=== PATIENT | male | born 1980 | race Two or more races ===

== ENCOUNTER 2021-05-18 08:21 | Observation (INO) | payer SELFPAY ==
--- NOTE | 2021-05-18 09:11 | ER ---
Nurse's Notes [facility] Name: Sawyer Ch III Age: 40 yrs Sex: Male : 1980 Arrival Date: 05/18/2021 Time: 08:23 Bed 17 Private MD: Diagnosis: Fever, unspecified;Cutaneous abscess of limb, unspecified-RIGHT LEG;Cellulitis and acute lymphangitis of other parts of limb;Hypomagnesemia Presentation: 05/18 08:25 Chief complaint: Patient states: "I hurt my right knee playing football years ago and a aa5 couple of days ago it started swelling up and it's like a grapefruit now". Pt also states "I ran a fever on Thursday and I took a covid test but it was negative". Pt denies fever/chills for about 3 days now. Coronavirus screen: At this time, the client does not indicate any symptoms associated with coronavirus-19. Ebola Screen: Patient negative for fever greater than or equal to 101.5 degrees Fahrenheit, and additional compatible Ebola Virus Disease symptoms. 08:25 Method Of Arrival: Ambulatory aa5 08:25 Initial Sepsis Screen: Does the patient meet any 2 criteria? No. Patient's initial aa5 sepsis screen is negative. Does the patient have a suspected source of infection? No. Patient's initial sepsis screen is negative. Risk Assessment: Do you want to hurt yourself or someone else? Patient reports no desire to harm self or others. Onset of symptoms was May 2021. 08:25 Acuity: ARI 3 aa5 Triage Assessment: 08:30 General: Appears distressed, uncomfortable, Behavior is calm, cooperative, appropriate bp for age. Pain: Complains of pain in medial aspect of right knee. EENT: No deficits noted. Neuro: No deficits noted. Cardiovascular: No deficits noted. Respiratory: No deficits noted. GI: No signs and/or symptoms were reported involving the gastrointestinal system. : No signs and/or symptoms were reported regarding the genitourinary system. Derm: No deficits noted. Musculoskeletal: Swelling present in medial aspect of right knee. Historical: - Allergies: 08:28 shrimp; aa5 - PMHx: 08:28 None; aa5 - PSHx: 08:28 None; aa5 - Immunization history:: Client reports receiving the 2nd dose of the Covid vaccine. - Social history:: Smoking status: Patient denies any tobacco usage or history of. - Family history:: not pertinent. Screenin:00 Abuse screen: Denies threats or abuse. Denies injuries from another. Nutritional bp screening: No deficits noted. Tuberculosis screening: No symptoms or risk factors identified. Fall Risk None identified. Assessment: 08:30 General: SEE TRIAGE NOTE. bp 10:30 Reassessment: No changes from previously documented assessment. Patient and/or family bp updated on plan of care and expected duration. Pain level reassessed. Patient is alert, oriented x 3, equal unlabored respirations, skin warm/dry/pink. 12:30 Reassessment: ADMIT INITIATED. bp 14:30 Reassessment: No changes from previously documented assessment. Patient and/or family bp updated on plan of care and expected duration. Pain level reassessed. Patient is alert, oriented x 3, equal unlabored respirations, skin warm/dry/pink. 16:30 Reassessment: No changes from previously documented assessment. Patient and/or family bp updated on plan of care and expected duration. Pain level reassessed. Patient is alert, oriented x 3, equal unlabored respirations, skin warm/dry/pink. 17:30 Reassessment: BED ASSIGNED. bp Vital Signs: 08:25 BP 166 / 89; Pulse 86; Resp 16 S; Temp 98.2(O); Pulse Ox 100% on R/A; Weight 95.25 kg aa5 (R); Height 5 ft. 9 in. (175.26 cm) (R); 11:00 BP 135 / 62; Pulse 84; Resp 24; Pulse Ox 98% ; bp 13:00 BP 132 / 86; Pulse 87; Resp 20; Pulse Ox 100% ; bp 15:00 BP 159 / 94; Pulse 79; Resp 25; Pulse Ox 98% ; bp 17:00 BP 161 / 78; Pulse 78; Resp 20; Pulse Ox 99% ; bp 08:25 Body Mass Index 31.01 (95.25 kg, 175.26 cm) aa5 ED Course: 08:23 Patient arrived in ED. as 08:25 Arm band placed on. aa 08:29 Triage completed. aa 08:30 Edwin Brownlee MD is Attending Physician. [facility] 08:58 Pieter Duran, RN is Primary Nurse. bp 09:09 XRAY Chest (1 view) In Process Unspecified. EDMS 09:09 Knee Right 2 View XRAY In Process Unspecified. EDMS 09:09 Joshua Suarez DO is Hospitalizing Provider. [facility] 09:20 Basic Metabolic Panel Sent. 5 09:20 CBC with Diff Sent. 5 09:20 LFT's Sent. 5 09:20 Magnesium Sent. 5 09:21 NT PRO-BNP Sent. 5 09:21 PT-INR Sent. 5 09:21 Troponin (emerg Dept Use Only) Sent. 5 09:21 Initial lab(s) drawn, by pr, sent to lab. EKG done, by ED staff, reviewed by Edwin Brownlee MD COVID swab sent to lab. Inserted saline lock: 20 gauge in right antecubital area, using aseptic technique. Blood collected. 09:22 Patient has correct armband on for positive identification. Bed in low position. Call [facility] light in reach. Side rails up X 1. Adult w/ patient. Warm blanket given. machine clothing replacer on. Pulse ox on. NIBP on. 09:23 Basic Metabolic Panel Sent. 5 09:37 US Extrmty Nonvasular Limited: ABSCESS In Process Unspecified. EDMS 17:30 No provider procedures requiring assistance completed. Patient admitted, IV remains in bp place. Administered Medications: 09:15 Drug: Clindamycin 900 mg Route: IVPB; Infused Over: 30 mins; Site: right antecubital; bp 10:07 Follow up: IV Status: Completed infusion; IV Intake: 50ml bp 09:15 Drug: morphine 4 mg Route: IVP; Site: right antecubital; bp 10:07 Follow up: Response: Pain is decreased bp 09:15 Drug: Zofran (Ondansetron) 4 mg Route: IVP; Site: right antecubital; bp 10:07 Follow up: Response: No adverse reaction bp 09:15 Drug: NS 0.9% 1000 ml Route: IV; Rate: 1 bolus; Site: right antecubital; bp 10:35 Follow up: IV Status: Completed infusion; IV Intake: 1000ml bp 09:15 Drug: NS 0.9% 1000 ml Route: IV; Rate: 125 ml/hr; Site: right antecubital; bp 18:37 Follow up: IV Status: Infusion continued upon admission bp 10:07 Drug: Zosyn (piperacillin-tazobactam) 3.375 grams Route: IVPB; Infused Over: 60 mins; bp Site: right forearm; 10:34 Follow up: IV Status: Completed infusion; IV Intake: 100ml bp 10:20 Drug: Magnesium Sulfate 1 grams Route: IVPB; Infused Over: 1 hrs; Site: right forearm; bp 18:02 Follow up: IV Status: Completed infusion; IV Intake: 100ml bp Intake: 10:07 IV: 50ml; Total: 50ml. bp 10:34 IV: 100ml; Total: 150ml. bp 10:35 IV: 1000ml; Total: 1150ml. bp 18:02 IV: 100ml; Total: 1250ml. bp Outcome: 09:11 Decision to Hospitalize by Provider. attila 18:36 Admitted to Med/surg accompanied by tech, via wheelchair, room 202, with chart, Report bp called to RERE DE LEÓN 18:36 Condition: stable 18:36 Instructed on the need for admit. 18:53 Patient left the ED. bp Signatures: Dispatcher [employer] EDMS Edwin Brownlee MD MD cha Martinez, Amelia as Calderon, Audri, RN RN Lisa Mishra Pieter Fatima, RN RN bp Corrections: (The following items were deleted from the chart) 08:29 08:28 Allergies: No Known Allergies; Jaguar aa5 09:48 09:20 CORONAVIRUS+ drawn and sent. [address]
--- NOTE | 2021-05-18 09:11 | EDPHYS ---
Physician Documentation [facility] Name: Sawyer Ch III Age: 40 yrs Sex: Male : 1980 Arrival Date: 05/18/2021 Time: 08:23 Bed 17 Private MD: SHARAD Physician Edwin Brownlee HPI: 05/18 09:01 This 40 yrs old Male presents to ER via Ambulatory with complaints of Knee attila Pain - swelling. 09:01 The patient presents with decreased range of motion, pain, swelling, tenderness. The attila complaints affect the medial aspect of right knee. Context: The problem was sustained at an unknown site, resulted from an unknown cause, the patient can fully bear weight, the patient is able to ambulate. Onset: The symptoms/episode began/occurred 3 day(s) ago. Modifying factors: The symptoms are alleviated by elevating leg, remaining still, the symptoms are aggravated by movement, bending knee. Associated signs and symptoms: Pertinent positives: fever, swelling, warmth. Treatment prior to arrival includes: no previous treatment. Severity of symptoms: At their worst the symptoms were moderate, this morning. The patient has not experienced similar symptoms in the past. Historical: - Allergies: 08:28 shrimp; aa5 - PMHx: 08:28 None; aa5 - PSHx: 08:28 None; aa5 - Immunization history:: Client reports receiving the 2nd dose of the Covid vaccine. - Social history:: Smoking status: Patient denies any tobacco usage or history of. - Family history:: not pertinent. ROS: 09:01 Constitutional: Negative for fever, chills, and weight loss, Eyes: Negative for injury, attila pain, redness, and discharge, ENT: Negative for injury, pain, and discharge, Neck: Negative for injury, pain, and swelling, Cardiovascular: Negative for chest pain, palpitations, and edema, Respiratory: Negative for shortness of breath, cough, wheezing, and pleuritic chest pain, Abdomen/GI: Negative for abdominal pain, nausea, vomiting, diarrhea, and constipation, Back: Negative for injury and pain, : Negative for injury, bleeding, discharge, and swelling, Neuro: Negative for headache, weakness, numbness, tingling, and seizure, Psych: Negative for depression, anxiety, suicide ideation, homicidal ideation, and hallucinations, Allergy/Immunology: Negative for hives, rash, and allergies, Endocrine: Negative for neck swelling, polydipsia, polyuria, polyphagia, and marked weight changes, Hematologic/Lymphatic: Negative for swollen nodes, abnormal bleeding, and unusual bruising. 09:01 MS/extremity: Positive for decreased range of motion, pain, swelling, tenderness, warmth, of the medial aspect of right knee. Exam: 09:01 Constitutional: This is a well developed, well nourished patient who is awake, alert, attila and in no acute distress. Head/Face: Normocephalic, atraumatic. Eyes: Pupils equal round and reactive to light, extra-ocular motions intact. Lids and lashes normal. Conjunctiva and sclera are non-icteric and not injected. Cornea within normal limits. Periorbital areas with no swelling, redness, or edema. ENT: Nares patent. No nasal discharge, no septal abnormalities noted. Tympanic membranes are normal and external auditory canals are clear. Oropharynx with no redness, swelling, or masses, exudates, or evidence of obstruction, uvula midline. Mucous membranes moist. Neck: Trachea midline, no thyromegaly or masses palpated, and no cervical lymphadenopathy. Supple, full range of motion without nuchal rigidity, or vertebral point tenderness. No Meningismus. Chest/axilla: Normal chest wall appearance and motion. Nontender with no deformity. No lesions are appreciated. Cardiovascular: Regular rate and rhythm with a normal S1 and S2. No gallops, murmurs, or rubs. Normal PMI, no JVD. No pulse deficits. Respiratory: Lungs have equal breath sounds bilaterally, clear to auscultation and percussion. No rales, rhonchi or wheezes noted. No increased work of breathing, no retractions or nasal flaring. Abdomen/GI: Soft, non-tender, with normal bowel sounds. No distension or tympany. No guarding or rebound. No evidence of tenderness throughout. Back: No spinal tenderness. No costovertebral tenderness. Full range of motion. Skin: Warm, dry with normal turgor. Normal color with no rashes, no lesions, and no evidence of cellulitis. Neuro: Awake and alert, GCS 15, oriented to person, place, time, and situation. Cranial nerves II-XII grossly intact. Motor strength 5/5 in all extremities. Sensory grossly intact. Cerebellar exam normal. Normal gait. Psych: Awake, alert, with orientation to person, place and time. Behavior, mood, and affect are within normal limits. 09:01 Musculoskeletal/extremity: ROM: full active range of motion, full passive range of motion, limited active range of motion due to pain, limited passive range of motion due to pain, Circulation is intact in all extremities. Sensation intact. Compartment Syndrome exam of affected extremity: is normal. DVT Exam: negative Homans' sign noted on exam, no appreciated bluish discoloration, pain, swelling, tenderness, erythema, increased warmth. 09:01 Skin: abscess, that is moderate sized, of the medial aspect of right knee, with fluctuance, with surrounding cellulitis, that is moderate, cellulitis, that is mild, that is moderate. 10:27 ECG was reviewed by the Attending Physician. [facility] Vital Signs: 08:25 BP 166 / 89; Pulse 86; Resp 16 S; Temp 98.2(O); Pulse Ox 100% on R/A; Weight 95.25 kg aa5 (R); Height 5 ft. 9 in. (175.26 cm) (R); 11:00 BP 135 / 62; Pulse 84; Resp 24; Pulse Ox 98% ; bp 13:00 BP 132 / 86; Pulse 87; Resp 20; Pulse Ox 100% ; bp 15:00 BP 159 / 94; Pulse 79; Resp 25; Pulse Ox 98% ; bp 17:00 BP 161 / 78; Pulse 78; Resp 20; Pulse Ox 99% ; bp 08:25 Body Mass Index 31.01 (95.25 kg, 175.26 cm) aa5 MDM: 08:30 Patient medically screened. [facility] 09:06 Differential diagnosis: contusion, abrasion. Data reviewed: vital signs, nurses notes, [facility] lab test result(s), EKG, radiologic studies, doppler, plain films. Data interpreted: quality assurance monitor: rate is 86 beats/min, rhythm is regular, Pulse oximetry: on room air is 100 %. Test interpretation: by ED physician or midlevel provider: ECG, plain radiologic studies. Counseling: I had a detailed discussion with the patient and/or guardian regarding: the historical points, exam findings, and any diagnostic results supporting the discharge/admit diagnosis, lab results, radiology results, the need for further work-up and treatment in the hospital. 05/18 08:54 Order name: CBC with Diff; Complete Time: 10:08 [facility] 05/18 08:54 Order name: LFT's; Complete Time: 10:08 [facility] 05/18 08:54 Order name: Magnesium; Complete Time: 10:08 [facility] 05/18 08:54 Order name: NT PRO-BNP; Complete Time: 10:08 [facility] 05/18 08:54 Order name: PT-INR; Complete Time: 10:09 [facility] 05/18 08:54 Order name: Troponin (emerg Dept Use Only); Complete Time: 10:09 [facility] 05/18 08:54 Order name: XRAY Chest (1 view); Complete Time: 10:09 [facility] 05/18 08:54 Order name: Knee Right 2 View XRAY; Complete Time: 10:09 [facility] 05/18 08:54 Order name: US Extrmty Nonvasular Limited: ABSCESS; Complete Time: 12:27 [facility] 05/18 08:54 Order name: Basic Metabolic Panel; Complete Time: 10:09 [facility] 05/18 09:48 Order name: SARS-COV-2 RT PCR; Complete Time: 12:27 [facility] 05/18 08:54 Order name: EKG; Complete Time: 08:55 [facility] 05/18 08:54 Order name: Cardiac monitoring; Complete Time: 09:21 [facility] 05/18 08:54 Order name: EKG - Nurse/Tech; Complete Time: 09:39 [facility] 05/18 08:54 Order name: IV Saline Lock; Complete Time: 09:21 [facility] 05/18 08:54 Order name: Labs collected and sent; Complete Time: 09:21 [facility] 05/18 08:54 Order name: O2 Per Protocol; Complete Time: 09:01 [facility] 05/18 08:54 Order name: O2 Sat Monitoring; Complete Time: 09:01 [facility] EC:27 Rate is 84 beats/min. Rhythm is regular. QRS [place] is Normal. [place] interval is normal. QRS attila interval is normal. QT interval is normal. No Q waves. T waves are Normal. No ST changes noted. Clinical impression: NSR w/ Non-specific ST/T Changes and No evidence of ischemia. Interpreted by me. Reviewed by me. Administered Medications: 09:15 Drug: Clindamycin 900 mg Route: IVPB; Infused Over: 30 mins; Site: right antecubital; bp 10:07 Follow up: IV Status: Completed infusion; IV Intake: 50ml bp 09:15 Drug: morphine 4 mg Route: IVP; Site: right antecubital; bp 10:07 Follow up: Response: Pain is decreased bp 09:15 Drug: Zofran (Ondansetron) 4 mg Route: IVP; Site: right antecubital; bp 10:07 Follow up: Response: No adverse reaction bp 09:15 Drug: NS 0.9% 1000 ml Route: IV; Rate: 1 bolus; Site: right antecubital; bp 10:35 Follow up: IV Status: Completed infusion; IV Intake: 1000ml bp 09:15 Drug: NS 0.9% 1000 ml Route: IV; Rate: 125 ml/hr; Site: right antecubital; bp 18:37 Follow up: IV Status: Infusion continued upon admission bp 10:07 Drug: Zosyn (piperacillin-tazobactam) 3.375 grams Route: IVPB; Infused Over: 60 mins; bp Site: right forearm; 10:34 Follow up: IV Status: Completed infusion; IV Intake: 100ml bp 10:20 Drug: Magnesium Sulfate 1 grams Route: IVPB; Infused Over: 1 hrs; Site: right forearm; bp 18:02 Follow up: IV Status: Completed infusion; IV Intake: 100ml bp Disposition Summary: 05/18/21 09:11 Hospitalization Ordered Hospitalization Status: Observation attila Provider: Joshua Suarez cha Location: Telemetry/MedSurg (observation) attila Condition: Stable attila Problem: new attila Symptoms: have improved attila Bed/Room Type: Standard attila Room Assignment: 204(05/18/21 17:30) eb Diagnosis - Fever, unspecified attila - Cutaneous abscess of limb, unspecified - RIGHT LEG attila - Cellulitis and acute lymphangitis of other parts of limb attila - Hypomagnesemia attila Forms: - Medication Reconciliation Form attila - SBAR form attila Signatures: Dispatcher [employer] Edwin Crisostomo MD MD cha Calderon, Audri, RN RN Pieter Alejandra RN RN Paradise Acosta Corrections: (The following items were deleted from the chart) 08:29 08:28 Allergies: No Known Allergies; [place] 09:00 08:55 BASIC METABOLIC PANEL+C.LAB.BRZ ordered. EDMS EDMS 09:00 08:55 Chest Single View+RAD.RAD.OSMAN ordered. EDMS EDMS 09:48 08:55 CORONAVIRUS+MR.URSULA ordered. EDMS EDMS 17:30 09:11 attila eb
[2021-05-18] MEDS ORDERED: NA CHLORIDE 0.9% 1,000 ML ONE (09:21)
[2021-05-18] MEDS ORDERED: ASPIRIN 81 MG CHEWABLE TABLET ONE (09:21)
[2021-05-18 09:27] LABS: Absolute Lymphocytes (CBC) 1.8 K/uL (0.7-4.9); Basophils % 0.1 % (0-1.3); Hematocrit 37.4 % (39.6-49.0); Lymphocytes % 36.9 % (15.3-44.8); MPV 7.5 fL (7.6-11.3); Protime INR 1.38; RBC Red Blood Cell Count 4.56 M/uL (4.33-5.43)
[2021-05-18] MEDS ORDERED: ONDANSETRON 4 MG/2 ML VIAL ONE (09:41)
[2021-05-18] MEDS ORDERED: MORPHINE 4 MG/ML SYR ONE (09:41)
[2021-05-18] MEDS ORDERED: NA CHLORIDE 0.9% 100 ML ONE (09:41)
[2021-05-18] MEDS ORDERED: CLINDAMYCIN 900MG/D5W 900 MG/50 ML IVPB IV ONE (09:42)
[2021-05-18] MEDS ORDERED: NA CHLORIDE 0.9% 2,000 ML ONE (09:42)
[2021-05-18] MEDS ORDERED: PIPERACIL/TAZO 3.375 GM VIAL IV ONE (09:42)
--- NOTE | 2021-05-18 09:44 | RAD REPORT ---
EXAM DESCRIPTION: RAD - Chest Single View - 05/18/2021 9:09 am CLINICAL HISTORY: COUGH COMPARISON: None TECHNIQUE: AP portable chest image was obtained 05/18/2021 9:09 am . FINDINGS: No focal mass or consolidation. Interstitial pattern is accentuated by under penetrated te [place] and overlying soft tissues. A mild interstitial edema or infiltrate is possible. Heart is upper normal to mildly enlarged. Vasculature is mildly prominent. No measurable pleural eff usion and no pneumothorax. No acute bony abnormality seen. No acute aortic findings suspected. IMPRESSION: No focal mass or consolidation. Heart, vasculature and lung markings are all prominent on this baseline study. A mild failure or volu me overload cannot be excluded.
--- NOTE | 2021-05-18 09:45 | RAD REPORT ---
EXAM DESCRIPTION: RAD - Knee Right 2 View - 05/18/2021 9:09 am CLINICAL HISTORY: PAIN COMPARISON: No comparisons FINDINGS: No fracture, dislocation or periosteal reaction.No joint effusion seen. No joint space debra rowing. Mild spurring seen along the tibial spine and minimal spurring along the margins of the guerin la. No air or foreign body in the soft tissues. Edema is seen in the subcutaneous fatty tissues surroundi ng the knee. IMPRESSION: Mild degenerative change with no acute bone or joint finding seen. Mild edema in the subcutaneous fatty tissues. Clinical concerns for internal derangement or occult bony injury could be further assessed with MR imaging.
--- NOTE | 2021-05-18 09:56 | P.HP ---
Patient History Date of Service: 05/18/21 Primary Care Provider: None Reason for admission: Right knee pain History of Present Illness: 40-year-old male presented to the emergency room with right knee pain. Patient reported area of erythema, pain and swelling about a week ago. This was to the medial aspect of the knee. Increasing erythema, swelling noted. Patient took some Augmentin medication that he had leftover. No significant improvement noted. Skin increased with erythema and pain. Patient reported some mild fever. He came to the ER for further evaluation. In the ER patient was evaluated. White count 5. Hemoglobin 12.5. BMP pending. Patient found to have significant cellulitis and abscess to the right medial knee. Patient admitted for treatment. Allergies No Known Aller Allergy (Uncoded 01/26/16 00:08) Unknown Home medications list reviewed: Yes - Past Medical/Surgical History Diabetic: No Past Medical History: Patient denies medical history Past Surgical History: Patient denies surgical history Psychosocial/ Personal History: Patient is and lives at home - Family History Family History: Reviewed- Non-Contributory - Social History Smoking Status: Never smoker Alcohol use: Yes CD- Drugs: No Caffeine use: No Place of Residence: Home Review of Systems General: Fever, As per HPI Eyes: Unremarkable ENT: Unremarkable Respiratory: Unremarkable Cardiovascular: Unremarkable Gastrointestinal: Unremarkable Genitourinary: Unremarkable Musculoskeletal: As per HPI Integumentary: As per HPI Neurological: Unremarkable Lymphatics: Unremarkable Physical Examination - Studies Laboratory Data (last 24 hrs) 05/18/21 09:16: PT 15.9 H, INR 1.38 05/18/21 09:16: WBC 5.00, Hgb 12.5 L, Hct 37.4 L, Plt Count 240 Assessment and Plan - Plan COVID: pending Xray of leg: pending Venous doppler: pending Physical Exam: GENERAL: The patient is a well-developed, well-nourished, in no apparent distress. Alert and oriented x3. VITAL SIGNS: Reviewed HEENT: Head is normocephalic and atraumatic. Extraocular muscles are intact. Pupils are equal, round, and reactive to light and accommodation. Nares appeared normal. Mouth is well hydrated and without lesions. Mucous membranes are moist. NECK: Supple. No carotid bruits. No lymphadenopathy or thyromegaly. LUNGS: Clear to auscultation. No crackles or wheezes are heard. HEART: Regular rate and rhythm, no appreciable gallops, rubs, murmurs or extra heart sounds ABDOMEN: Soft, nontender, and nondistended. Positive bowel sounds. No hepatosplenomegaly was noted. EXTREMITIES: Erythema area of erythema, induration and pain to the right medial aspect of the knee. This is not within the knee compartment. Some area of mild fluctuance noted as well. NEUROLOGIC: The patient is oriented to person, place and time. Strength and sensation are grossly intact. Face is symmetric. SKIN: As above Impression: Right medial aspect of knee cellulitis/abscess Plan: Patient will be admitted for further evaluation and treatment. X-ray and venous Doppler pending at this time. Continue IV antibiotic therapycefepime and vancomycin. Pharmacy to monitor and adjust. We will keep the patient n.p.o. after midnight as the patient will likely require surgical intervention. Surgery consulted. Await further recommendations. Provide medication for pain. DVT prophylaxis in place. Code Status: Full Code DVT prophylaxis: Lovenox Advanced Care Planning-30 minutes: Home at discharge Discharge Plan: Home Plan to discharge in: 48 Hours - Advance Directives Does patient have a Living Will: No Does patient have a Durable POA for Healthcare: No - Code Status/Comfort Care Code Status Assessed: Yes (Patient is full code ) Time Spent Managing Pts Care (In Minutes): 55
[2021-05-18 10:02] LABS: ALT/SGPT 39 U/L (12-78); AST/SGOT 25 U/L (15-37); Albumin 3.3 g/dL (3.4-5.0); Alkaline Phosphatase 243 U/L (45-117); BUN Blood Urea Nitrogen 10 mg/dL (7-18); Bicarbonate 27 mmol/L (21-32); Bilirubin Direct 0.3 mg/dL (0-0.2); Bilirubin Total 0.6 mg/dL (0.2-1.0); Glucose Level 97 mg/dL (74-106); Magnesium 1.7 mg/dL (1.8-2.4); NT PRO-BNP 420 pg/mL (<125); Potassium 4.1 mmol/L (3.5-5.1); Protein, Total 7.4 g/dL (6.4-8.2); Sodium Level 140 mmol/L (136-145); Troponin (Emerg Dept Use Only) < 0.02 ng/mL (0.0-0.045)
--- NOTE | 2021-05-18 10:28 | RAD REPORT ---
EXAM DESCRIPTION: US - Extremity Nonvascular Limited - 05/18/2021 9:37 am CLINICAL HISTORY: Deformity;Pain;Swelling;Weakness COMPARISON: No comparisons FINDINGS: Sonographic evaluation was performed of the soft tissues around the right knee. Edematous tissues are identifiable. A 3 centimeter heterogeneous hypoechoic collection is present med ial right knee. This is most likely an abscess. IMPRESSION: Approximately 3 centimeter abscess soft tissues medial right knee.
[2021-05-18] MEDS ORDERED: MAGNESIUM SULFATE 1 gm IVPB 1 GM/100 ML BAG IV ONE (10:54)
[2021-05-18 19:05] VITALS: O2SAT 99
[2021-05-18] MEDS ORDERED: ONDANSETRON 4 MG/2 ML VIAL IV PRN (19:46)
[2021-05-18] MEDS ORDERED: TRAMADOL HCL 50 MG TAB PO PRN (19:46)
[2021-05-18] MEDS ORDERED: HYDROCODONE/APAP 7.5/325 MG TAB PO PRN (19:46)
[2021-05-18] MEDS ORDERED: ACETAMINOPHEN 500 MG TAB PO PRN (19:46)
[2021-05-18] MEDS ORDERED: CEFEPIME 1 GM/VIAL IV SCH (21:00)
[2021-05-18] MEDS ORDERED: CEFEPIME 1 GM/100 ML BAG IV SCH (21:00)
[2021-05-18 21:29] VITALS: BMI 31.0
[2021-05-18] MEDS: VANCOMYCIN 1.75 GM in NA CHLORIDE 0.9% 500 ML IVPB SCH (23:16)
[2021-05-18] MEDS: HYDROMORPHONE HCL 0.5 MG/0.5 ML INJ IV PRN (23:22)
[2021-05-18] MEDS ORDERED: CEFEPIME 1 GM/VIAL ONE (23:44)
[2021-05-19] MEDS ORDERED: NA CHLORIDE 0.9% 100 ML ONE (00:10)
[2021-05-19] MEDS: HYDROMORPHONE HCL 0.5 MG/0.5 ML INJ IV PRN (05:45)
--- NOTE | 2021-05-19 06:03 | P.PN ---
Subjective Date of Service: 05/19/21 Primary Care Provider: None Chief Complaint: Right knee pain Subjective: Improving, Doing well Physical Examination - Vital Signs Temperature: 100.9 F Blood Pressure: 156/85 Pulse: 90 Respirations: 20 Pulse Ox (%): 99 - Studies Laboratory Data (last 24 hrs) 05/18/21 09:16: PT 15.9 H, INR 1.38 05/18/21 09:16: WBC 5.00, Hgb 12.5 L, Hct 37.4 L, Plt Count 240 05/18/21 09:16: Sodium 140, Potassium 4.1, BUN 10, Creatinine 0.55, Glucose 97, Magnesium 1.7 L, Total Bilirubin 0.6, AST 25, ALT 39, Alkaline Phosphatase 243 H Assessment & Plan Discharge Plan: Home Plan to discharge in: 24 Hours Physician Review Additional Text: COVID: negative Xray of leg: COMPARISON: No comparisons FINDINGS: No fracture, dislocation or periosteal reaction.No joint effusion seen. No joint space narrowing. Mild spurring seen along the tibial spine and minimal spurring along the margins of the patella. No air or foreign body in the soft tissues. Edema is seen in the subcutaneous fatty tissues surrounding the knee. IMPRESSION: Mild degenerative change with no acute bone or joint finding seen. Mild edema in the subcutaneous fatty tissues. Venous doppler: COMPARISON: No comparisons FINDINGS: Sonographic evaluation was performed of the soft tissues around the right knee. Edematous tissues are identifiable. A 3 centimeter heterogeneous hypoechoic collection is present medial right knee. This is most likely an abscess. IMPRESSION: Approximately 3 centimeter abscess soft tissues medial right knee. CXR: COMPARISON: None TECHNIQUE: AP portable chest image was obtained 05/18/2021 9:09 am . FINDINGS: No focal mass or consolidation. Interstitial pattern is accentuated by under penetrated technique and overlying soft tissues. A mild interstitial edema or infiltrate is possible. Heart is upper normal to mildly enlarged. Vasculature is mildly prominent. No measurable pleural effusion and no pneumothorax. No acute bony abnormality seen. No acute aortic findings suspected. IMPRESSION: No focal mass or consolidation. Heart, vasculature and lung markings are all prominent on this baseline study. A mild failure or volume overload cannot be excluded. Physical Exam: GENERAL: The patient is a well-developed, well-nourished, in no apparent distress. Alert and oriented x3. VITAL SIGNS: Reviewed HEENT: Neck supple LUNGS: Clear to auscultation. No crackles or wheezes are heard. HEART: Regular rate and rhythm, no appreciable gallops, rubs, murmurs or extra heart sounds ABDOMEN: Soft, nontender, and nondistended. Positive bowel sounds. No hepatosplenomegaly was noted. EXTREMITIES: Erythema to the right medial aspect improved. Induration noted. Surgery at bedside to perform I&D NEUROLOGIC: The patient is oriented to person, place and time. Strength and sensation are grossly intact. Face is symmetric. SKIN: As above Impression: Right medial aspect of knee cellulitis/abscess Plan: Surgery to perform I&D. We will plan to teach on wound care and sent home with Levuin today. Patient will need close follow-up with surgery later this week. Code Status: Full Code DVT prophylaxis: Lovenox Advanced Care Planning-30 minutes: Home at discharge Time Spent Managing Pts Care (In Minutes): 55
[2021-05-19 06:19] LABS: Absolute Lymphocytes (CBC) 1.9 K/uL (0.7-4.9); Basophils % 0.1 % (0-1.3); Hematocrit 34.3 % (39.6-49.0); Lymphocytes % 27.6 % (15.3-44.8); MPV 7.9 fL (7.6-11.3); RBC Red Blood Cell Count 4.18 M/uL (4.33-5.43)
[2021-05-19 06:26] LABS: BUN Blood Urea Nitrogen 9 mg/dL (7-18); Bicarbonate 28 mmol/L (21-32); Glucose Level 90 mg/dL (74-106); Potassium 4.4 mmol/L (3.5-5.1); Sodium Level 140 mmol/L (136-145)
[2021-05-19] MEDS ORDERED: LIDOCAINE 1% 20 ML MDV ONE (08:12)
[2021-05-19] MEDS ORDERED: ENOXAPARIN 40 MG/0.4 ML SQ SCH (09:00)
[2021-05-19] MEDS ORDERED: VANCOMYCIN 1 GM in NA CHLORIDE 0.9% 500 ML IVPB SCH (09:00)
--- NOTE | 2021-05-19 09:50 | CON ---
Date of Consultation: 05/19/2021 Reason For Service: Cellulitis of the right knee. History Of Present Illness: This is the case of a 40-year-old patient, who comes to us with a lump i n the right knee area, came to the ER since even though he had some lump there before he stays increa sing in size, at this time is red, diagnosed with an abscess, so I was called for abscess drainage. He denies any trauma, dysuria, hematuria, hematochezia, melena. He denies any previous tumor. He sa ys he had a small before and it is growing. Allergies: NONE. Medical Problems: None. Surgical Problems: None. Social History: He does smoke. He drinks alcohol occasionally. Review of Systems: See H and P. Ten points otherwise unremarkable. Physical Examination: General: The patient is awake, alert. HEENT: Pupils are equal and reactive. Anicteric. Neck: Supple. Chest: Clear. Abdomen: Soft and depressible. Extremities: Good capillary refill. Integumentary: On the right medial just above the knee area shows an area of induration and fluctuan ce is present. Erythema and tenderness with increased temperature. Nonpulsatile. Laboratory Data: WBC count of 6.8. Ultrasound of that area shows an abscess in the right medial kne e area. Assessment: This is a 40-year-old patient with an abscess on the right medial area. I explained to him that even though he has that over the area the fact that he had a mass in the past may have to be addressed electively. Right now, we are going to take care of the abscess and then eventually he ma y have to have a formal excision. The benefits, alternatives, and risks of incision and drainage ful ly explained, which include, but not limited to infection, bleeding, damage to adjacent structures, a nesthesia complication, nonhealing wound, AR, and even . He also understands he will require dr jessica changes in the form of wet-to-dry. He says his family member is a home health agency employer who knows how to do dressing changes. Procedure Note: Procedure is incision and drainage of right thigh abscess. Under aseptic condition using lidocaine viscous for local anesthetic, after time-out we proceeded to inject local anesthetics over the area after prepping the area in the usual sterile fashion. Incision was carried down. We found a cavity, drained some pus coming from the area and then I took a biopsy of the induration, fel t more than just an abscess, so we took a biopsy of the area, sent cultures too, and then packed the area with wet-to-dry dressing after hemostasis obtained. The patient tolerated the procedure well. Covered with sterile dressings. If the patient is to be discharged home, then he has to be followed in my office at the end of this week, wet-to-dry dressing daily, and p.o. antibiotics. MICHELLE/QUANG Voice ID: [id number] Report ID: [id number]
[2021-05-19] MEDS ORDERED: CEFEPIME 1 GM/100 ML BAG IV SCH (10:00)
--- NOTE | 2021-05-19 10:20 | P.DS ---
Admission Date: 05/18/21 Discharge Date: 05/19/21 Primary Care Provider: None Disposition: ROUTINE DISCHARGE Discharge Condition: GOOD Reason for Admission: Right knee pain Consultations: Surgery-Dr. Fleming Procedures: COVID: negative Xray of leg: COMPARISON: No comparisons FINDINGS: No fracture, dislocation or periosteal reaction.No joint effusion seen. No joint space narrowing. Mild spurring seen along the tibial spine and minimal spurring along the margins of the patella. No air or foreign body in the soft tissues. Edema is seen in the subcutaneous fatty tissues surrounding the knee. IMPRESSION: Mild degenerative change with no acute bone or joint finding seen. Mild edema in the subcutaneous fatty tissues. Venous doppler: COMPARISON: No comparisons FINDINGS: Sonographic evaluation was performed of the soft tissues around the right knee. Edematous tissues are identifiable. A 3 centimeter heterogeneous hypoechoic collection is present medial right knee. This is most likely an abscess. IMPRESSION: Approximately 3 centimeter abscess soft tissues medial right knee. CXR: COMPARISON: None TECHNIQUE: AP portable chest image was obtained 05/18/2021 9:09 am . FINDINGS: No focal mass or consolidation. Interstitial pattern is accentuated by under penetrated technique and overlying soft tissues. A mild interstitial edema or infiltrate is possible. Heart is upper normal to mildly enlarged. Vasculature is mildly prominent. No measurable pleural effusion and no pneumothorax. No acute bony abnormality seen. No acute aortic findings suspected. IMPRESSION: No focal mass or consolidation. Heart, vasculature and lung markings are all prominent on this baseline study. A mild failure or volume overload cannot be excluded. Surgery: Bedside Incision and drainage of right thigh abscess. Impression: Right medial aspect of knee cellulitis/abscess status post bedside incision and drainage of right thigh abscess Elevated blood pressure without hypertension Brief History of Present Illness: 40-year-old male presented to the emergency room with right knee pain. Patient reported area of erythema, pain and swelling about a week ago. This was to the medial aspect of the knee. Increasing erythema, swelling noted. Patient took some Augmentin medication that he had leftover. No significant improvement noted. Skin increased with erythema and pain. Patient reported some mild fever. He came to the ER for further evaluation. In the ER patient was evaluated. White count 5. Hemoglobin 12.5. BMP pending. Patient found to have significant cellulitis and abscess to the right medial knee. Patient admitted for treatment. Hospital Course: Patient presented with right medial aspect knee cellulitis/abscess. Patient was admitted for treatment. Patient received IV tabetic therapy with improvement. Surgery was consulted to further evaluate. Surgery recommended intervention. Patient preferred to have bedside procedure. Surgery performed bedside irrigation and debridement. Culture and pathology sent for analysis. Tolerated procedure well. Prior to discharge family member will be taught on wound care. At discharge patient will continue with wound care as recommended by surgery. Patient is to clean area with normal saline. Patient is to pack area with gauze. Wet-to-dry dressing daily are to be continued. At discharge patient will continue with Levaquin 500 mg 1 pill daily for 7 days. Patient may take Tylenol or ibuprofen as needed for pain. Patient will need to follow-up with surgery within 1 week to follow-up his hospitalization until resolution of infection. Recommend no significant physical activity for at least 1 week. Patient will follow up with surgery to go over culture and pathology results. Patient had elevated blood pressure without history of hypertension. Recommend to monitor blood pressure daily. If blood pressures remain above 140/90 greater than 3 days then he is to contact his PCP to consider medication. Education on hypertension provided. Vital Signs/Physical Exam: Temp Pulse Resp BP Pulse Ox 99.1 F 90 19 176/84 H 94 05/19/21 08:00 05/19/21 08:00 05/19/21 08:00 05/19/21 08:00 05/19/21 08:00 General: Alert, In no apparent distress, Oriented x3, Cooperative HEENT: Atraumatic Neck: Supple Respiratory: Clear to auscultation bilaterally, Normal air movement Cardiovascular: Normal pulses, Regular rate/rhythm Gastrointestinal: Normal bowel sounds, No tenderness, No masses, No rebound, No guarding Integumentary: Other (Refer to progress note) Neurological: Normal speech, Normal strength at 5/5 x4 extr, Normal tone, Normal affect Laboratory Data at Discharge: WBC 6.80 K/uL (4.3-10.9) D 05/19/21 05:31 Hgb 11.6 g/dL (13.6-17.9) L 05/19/21 05:31 Hct 34.3 % (39.6-49.0) L 05/19/21 05:31 Plt Count 236 K/uL (152-406) 05/19/21 05:31 PT 15.9 SECONDS (9.5-12.5) H 05/18/21 09:16 INR 1.38 05/18/21 09:16 Sodium 140 mmol/L (136-145) 05/19/21 05:31 Potassium 4.4 mmol/L (3.5-5.1) 05/19/21 05:31 BUN 9 mg/dL (7-18) 05/19/21 05:31 Creatinine 0.48 mg/dL (0.55-1.3) L 05/19/21 05:31 Glucose 90 mg/dL (74-106) 05/19/21 05:31 Magnesium 1.7 mg/dL (1.8-2.4) L 05/18/21 09:16 Total Bilirubin 0.6 mg/dL (0.2-1.0) 05/18/21 09:16 AST 25 U/L (15-37) 05/18/21 09:16 ALT 39 U/L (12-78) 05/18/21 09:16 Alkaline Phosphatase 243 U/L (45-117) H 05/18/21 09:16 Home Medications: levoFLOXacin [Levaquin] 500 mg PO DAILY #7 tab 05/19/21 New Medications: levoFLOXacin [Levaquin] 500 mg PO DAILY #7 tab Physician Discharge Instructions: Patient presented with right medial aspect knee cellulitis/abscess. Patient was admitted for treatment. Patient received IV tabetic therapy with improvement. Surgery was consulted to further evaluate. Surgery recommended intervention. Patient preferred to have bedside procedure. Surgery performed bedside i rrigation and debridement. Culture and pathology sent for analysis. Tolerated procedure well. Prior to discharge family member will be taught on wound care. At discharge patient will continue with wound care as recommended by surgery. Patient is to clean area with normal saline. Patient is to pack area with gauze. Wet-to-dry dressing daily are to be continued. At discharge patient will continue with Levaquin 500 mg 1 pill daily for 7 days. Patient may take Tylenol or ibuprofen as needed for pain. Patient will need to follow-up with surgery within 1 week to follow-up his hospitalization until resolution of infection. Recommend no significant physical activity for at least 1 week. Patient will follow up with surgery to go over culture and pathology results. Patient had elevated blood pressure without history of hypertension. Recommend to monitor blood pressure daily. If blood pressures remain above 140/90 greater than 3 days then he is to contact his PCP to consider medication. Education on hypertension provided. Diet: AHA Activity: Fall precautions Followup: NONE,NONE [Primary Care Provider] - Time spent managing pt's care (in minutes): 55
[2021-05-19] MEDS: VANCOMYCIN 1.75 GM in NA CHLORIDE 0.9% 500 ML IVPB SCH (10:30)
[2021-05-19 11:40] VITALS: BP 169/81; TEMP 98.6
--- NOTE | 2021-05-20 09:02 | EKG ---
Test Date: 2021-05-18 Test Time: 09:49:34 Seismic Interpreter: FRANTZ MEASUREMENT RESULTS: Intervals: Rate: 84 RI: 154 QRSD: 92 QT: 358 QTc: 423 [place]: P: 5 RI: 154 QRS: 48 T: 51 INTERPRETIVE STATEMENTS: Normal sinus rhythm RSR' or QR pattern in V1 suggests right ventricular conduction delay Nonspecific T wave abnormality Abnormal ECG No previous ECG available for comparison Electronically Signed On 05-20-21 08:57:45 CDT by Lloyd Hoang
== END 2021-05-19 13:16 | disposition home or self-care (01) ==
LOC: ER 08:21 → ERHOLD 09:43 → 2ND 18:36
PROVIDERS: ADMIT Family Medicine; ATTEND Family Medicine
PROC: 0H9KXZZ Drainage of Right Lower Leg Skin, External Approach (ICD-10-PCS; principal; 2021-05-19)
DX: L02.415 Cutaneous abscess of right lower limb (principal); L03.115 Cellulitis of right lower limb; R03.0 Elevated blood-pressure reading, without diagnosis of hypertension; R50.9 Fever, unspecified; I89.1 Lymphangitis; E83.42 Hypomagnesemia; Z91.013 Allergy to seafood; Z20.822 Contact with and (suspected) exposure to COVID-19
CPT/HCPCS: 36415; 71045; 76882; 80048; 80076; 83735; 83880; 84145; 84484; 85025; 85610; 87040; 87070; 87075; 87205; 88304; 88305; 93005; 96365; 96366; 96367; 96375; 99285; G0378; J0692; J1170; J1650; J2405; J2543; J3370; J3475; J7030; J7040; U0003